=== PATIENT | male | born 1975 | race Hispanic/Latino ===

== ENCOUNTER 2021-03-30 12:45 | Emergency (ER) | payer OTHER ==
[~2021-03-30] VITALS: Ht 172.7 cm; Wt 108.9 kg
[2021-03-30] MEDS ORDERED: KETOROLAC TROMETHAMINE 30 MG/ML VIAL IV STA (13:10)
[2021-03-30] MEDS ORDERED: TAMSULOSIN HCL 0.4 MG CAP PO SCH (13:15)
[2021-03-30] MEDS ORDERED: SODIUM CHLORIDE 0.9% 1000ML 1,000 ML IV SCH (13:15)
[2021-03-30] MEDS ORDERED: KETOROLAC TROMETHAMINE 60 MG/2 ML VIAL ONE (13:26)
[2021-03-30] MEDS ORDERED: FLOMAX0.4 MG PO (15:22)
[2021-03-30] MEDS ORDERED: KETOROLAC TROME10 MG PO (15:24)
[2021-03-30] MEDS ORDERED: ONDANSETRON ODT4 MG PO (15:24)
[2021-03-30] MEDS ORDERED: CIPRO500 MG PO (15:27)
[2021-03-30 15:51] VITALS: BP 135/75
== END 2021-03-30 15:56 | disposition home or self-care (01) ==
LOC: FSED 12:52
DX: M54.50 Low back pain, unspecified (principal); N13.2 Hydronephrosis with renal and ureteral calculous obstruction; R74.8 Abnormal levels of other serum enzymes; J45.909 Unspecified asthma, uncomplicated
CPT/HCPCS: 74176; 99284; J1885; J7030